=== PATIENT | male | born 1980 | race African-American/Black ===

== ENCOUNTER 2017-10-20 01:15 | Outpatient (CLI) | payer OTHER | END 2017-10-20 01:16 | disposition home or self-care (01) | LOC: BICMRI 01:15 | PROVIDERS: ATTEND Student in an Organized Health Care Education/Training Program | DX: M54.2 Cervicalgia (principal); M54.5 Low back pain; M47.892 Other spondylosis, cervical region; M47.896 Other spondylosis, lumbar region; M48.061 Spinal stenosis, lumbar region without neurogenic claudication | CPT/HCPCS: 72141; 72148 ==